=== PATIENT | female | born 1975 | race Two or more races ===

== ENCOUNTER 2020-10-15 10:14 | Emergency (ER) | payer OTHER ==
[~2020-10-15] VITALS: Ht 157.5 cm; Wt 60.3 kg
[2020-10-15] MEDS ORDERED: ONDANSETRON ODT 4 MG TAB PO ONE (11:30)
[2020-10-15 12:30] VITALS: BP 132/67
== END 2020-10-15 12:43 | disposition home or self-care (01) ==
LOC: ER 10:14
DX: R11.2 Nausea with vomiting, unspecified (principal); E78.5 Hyperlipidemia, unspecified
CPT/HCPCS: 93005; 99283; Q0162

== ENCOUNTER 2020-10-25 00:34 | Emergency (ER) | payer OTHER ==
[~2020-10-25] VITALS: Ht 157.5 cm; Wt 58.5 kg
[2020-10-25 01:37] LABS: Urine Bacteria FEW /hpf (None Seen); Urine Blood 3+ /uL (Negative); Urine Specific Gravity 1.001 (1.001-1.035); Urine WBC 1 /hpf (0 - 5)
[2020-10-25] MEDS ORDERED: MORPHINE SULFATE 4 MG/ML SYR/VIAL IV ONE (03:45)
[2020-10-25] MEDS ORDERED: KETOROLAC TROMETH 30 MG/ML 1ML VIAL IV ONE (03:45)
[2020-10-25] MEDS ORDERED: ONDANSETRON HCL 4 MG/2 ML VIAL IV ONE (03:45)
[2020-10-25] MEDS ORDERED: SODIUM CHLORIDE 0.9% 1,000 ML IV ONE (03:45)
[2020-10-25 05:16] LABS: BUN/Creatinine Ratio 15.7; Calcium 7.1 mg/dL (8.5-10.1); Potassium 3.1 mmol/L (3.5-5.1)
[2020-10-25 05:19] LABS: Bilirubin, Total 0.5 mg/dL (0.2-1.0); Total Protein 5.9 g/dL (6.4-8.2)
[2020-10-25] MEDS ORDERED: IOHEXOL 300 MG/ML 100ML BOTTLE IJ ONE (05:20)
[2020-10-25 06:30] VITALS: BP 117/73
== END 2020-10-25 07:14 | disposition home or self-care (01) ==
LOC: ER 00:34
DX: N39.0 Urinary tract infection, site not specified (principal)
CPT/HCPCS: 36415; 74177; 80053; 81001; 81025; 96361; 96374; 96375; 99285; J1885; J2270; J2405; J7030; Q9967

== ENCOUNTER 2023-08-23 18:05 | Emergency (ER) | payer OTHER ==
[~2023-08-23] VITALS: Ht 157.5 cm; Wt 56.0 kg
[2023-08-23 18:15] VITALS: BP 116/69; PULSE 99; RESP 18; O2SAT 98
[2023-08-23 21:07] LABS: COVID19 ANTIGEN SOFIA FIA NEGATIVE (NEGATIVE); Rapid Influenza A Negative (Negative); Rapid Influenza B Negative (Negative)
== END 2023-08-23 23:15 | disposition left against medical advice (07) ==
LOC: ER 18:05
DX: J02.9 Acute pharyngitis, unspecified (principal); Z53.21 Procedure and treatment not carried out due to patient leaving prior to being seen by health care provider; Z20.822 Contact with and (suspected) exposure to COVID-19
CPT/HCPCS: 36415; 87426; 87804